=== PATIENT | male | born 1980 | race Caucasian/White ===

== ENCOUNTER 2017-05-28 23:03 | Emergency (ER) | payer OTHER ==
[2017-05-28 23:47] VITALS: BP 133/83; PULSE 88; TEMP 97.6; BMI 42.3
--- NOTE | 2017-05-29 | PDOC ---
History of Present Illness <Uriel Bill - Last Filed: 05/29/17 02:43> - History of Present Illness Initial Comments: 36 year old male with PMH of non-insulin dependent diabetes, diabetic neuropathy, and HTN presenting with left foot swelling over the last month. He states that he was in [place] one month ago and noticed swelling of his left foot that has been since slowly resolving. He denies any trauma or long trips besides the flight back and forth to [place]. He does have partial sensory loss in his feet bilaterally and admits that he could have sprained his ankle and not have known it. He is able to walk without any difficulty at all. Denies fevers, chills, nausea, vomiting, diarrhea, or constipation. 05/29/17 01:14 <Anne-Marie Whiting - Last Filed: 05/29/17 06:21> - General Chief Complaint: Edema Stated Complaint: FOOT INJURY Time Seen by Provider: 05/28/17 23:59 Past History <Uriel Bill - Last Filed: 05/29/17 02:43> - Past Medical History Diabetes: Yes (type 2) - Psycho/Social/Smoking Cessation Hx Anxiety: No Suicidal Ideation: No Smoking History: Never smoked Have you smoked in the past 12 months: No Information on smoking cessation initiated: No Hx Alcohol Use: No Drug/Substance Use Hx: No Substance Use Type: None <Anne-Marie Whiting - Last Filed: 05/29/17 06:21> - Past Medical History Allergies/Adverse Reactions: Allergies Allergy/AdvReac Type Severity Reaction Status Date / Time ibuprofen Allergy Verified 05/28/17 23:24 Penicillins Allergy Verified 05/28/17 23:24 Home Medications: Ambulatory Orders Metformin HCl [Glucophage -] 1,000 mg PO BID 02/13/16 Glipizide [Glipizide ER] 10 mg PO DAILY 05/29/17 Review of Systems - Review of Systems Constitutional: No: Chills, Diaphoresis, Fever HEENTM: No: Blurred Vision, Recent change in vision Respiratory: No: Cough, Shortness of Breath, Wheezing Cardiac (ROS): Yes: Edema. No: Chest Pain, Irregular Heart Rate ABD/GI: No: Constipated, Diarrhea, Nausea, Vomiting <Anne-Marie Whiting - Last Filed: 05/29/17 06:21> *Physical Exam - Vital Signs Last Vital Signs Temp Pulse Resp BP Pulse Ox 97.6 F 88 20 133/83 97 05/28/17 23:25 05/28/17 23:25 05/28/17 23:25 05/28/17 23:25 05/28/17 23:25 <Uriel Bill - Last Filed: 05/29/17 02:43> - Vital Signs Last Vital Signs Temp Pulse Resp BP Pulse Ox 97.6 F 88 20 133/83 97 05/28/17 23:25 05/28/17 23:25 05/28/17 23:25 05/28/17 23:25 05/28/17 23:25 - Physical Exam General Appearance: Yes: Nourished, Appropriately Dressed. No: Apparent Distress HEENT: positive: EOMI, SONIA, Normal Voice Neck: positive: Trachea midline, Normal Thyroid, Supple. negative: Tender, Rigid Respiratory/Chest: positive: Lungs Clear, Normal Breath Sounds. negative: Chest Tender, Respiratory Distress, Accessory Muscle Use Cardiovascular: positive: Regular Rhythm, Regular Rate, S1, S2, Edema. negative : JVD, Murmur Gastrointestinal/Abdominal: positive: Normal Bowel Sounds, Flat, Soft. negative : Tender Musculoskeletal: positive: Other (Left foot edema, non-pitting up to ankle. No bony eformities, tenderness, erythema, warmth, or skin breakage. Negative misa 's sign, calf tenderness, or unilateral leg swelling.). negative: Normal Inspection Extremity: positive: Normal Capillary Refill, Normal Range of Motion, Other ( Bilateral loss of descriminatory sensation in dorsal and plantar aspect of feet. ). negative: Normal Inspection Integumentary: positive: Normal Color, Dry, Warm. negative: Erythema <Anne-Marie Whiting - Last Filed: 05/29/17 06:21> ED Treatment Course - LABORATORY CBC & Chemistry Diagram: 05/29/17 01:35 05/29/17 01:35 - ADDITIONAL ORDERS Additional order review: Laboratory Results 05/29/17 01:35 Sodium 136 Potassium 4.2 Chloride 99 Carbon Dioxide 31 Anion Gap 6 L BUN 13 Creatinine 0.8 Creat Clearance w eGFR > 60 Random Glucose 281 H Calcium 8.7 Total Bilirubin 0.6 AST 12 L ALT 29 Alkaline Phosphatase 92 Total Protein 7.4 Albumin 3.6 05/29/17 01:35 RBC 5.04 MCV 79.9 L MCHC 33.3 RDW 13.5 MPV 8.3 Neutrophils % 53.3 Lymphocytes % 35.8 Monocytes % 8.8 Eosinophils % 1.5 Basophils % 0.6 - RADIOLOGY Radiograph Interpretation: 05/29/17 02:43 EXAM: Left lower extremity duplex venous Doppler ultrasound, interpreted by Dr. Najera. Read by: Dr. Whiting Impression: No evidence of DVT in the left lower extremity. <Uriel Bill - Last Filed: 05/29/17 02:43> - LABORATORY CBC & Chemistry Diagram: 05/29/17 01:35 05/29/17 01:35 <Anne-Marie Whiting - Last Filed: 05/29/17 06:21> Medical Decision Making - Medical Decision Making 36 year old male with diabetes and diabetic neuropathy with left foot swelling that has been gradually improving over the month. This is not concerning because he has full range of motion and lacks erythema, skin breakage, fluctuance, or bony deformities. Therefore, no suspicion for cellulitis, osteo, or charcot joint. CBC and CMP WNl with the exception of a glucose of 281. Doppler of left lower extremity not showing any vascular pathology. 05/29/17 03:18 Patient can go home with PCP follow up as needed. 05/29/17 03:30 <Anne-Marie Whiting - Last Filed: 05/29/17 06:21> *DC/Admit/Observation/Transfer <Uriel Bill - Last Filed: 05/29/17 02:43> - Discharge Dispostion Admit: No - Attestations Physician Attestion: 05/29/17 03:33 I, Dr. Anne-Marie Whiting, attest that this document has been prepared under my direction and personally reviewed by me in its entirety. I further attest, that it accurately reflects all work, treatment, procedures and medical decision -making performed by me. 05/29/17 06:21 <Anne-Marie Whiting - Last Filed: 05/29/17 06:21> Diagnosis at time of Disposition: Foot swelling - Discharge Dispostion Disposition: HOME Condition at time of disposition: Improved - Referrals Referrals: Alphonso Mendoza MD [Primary Care Provider] - - Patient Instructions Additional Instructions: You were seen for swelling of your left foot. We do not believe that it is infected and checked you left leg for blood clots. There were no clots seen. You may have sprained your ankle without noticing. It is important for you to keep your sugar under control and check your feet every day for wounds or skin breakage as your diabetic neuropathy exposes you to bad foot wounds and infections without you knowing. Please follow up with your primary care physician if you have any more questions.
[2017-05-29 01:57] LABS: BASOPHIL 0.6 % (0-2.0); EOSINOPHIL 1.5 % (0-4.5); MCH 26.6 pg (25.7-33.7); MCHC 33.3 g/dl (32.0-35.9); MEAN CELL VOLUME 79.9 fl (80-96); MEAN PLT VOLUME 8.3 fl (7.5-11.1); NEUTROPHILS 53.3 % (42.8-82.8); PLATELET COUNT 229 K/MM3 (134-434); RDW 13.5 % (11.9-15.9); WHITE BLOOD COUNT 8.2 K/mm3 (4.0-10.0)
[2017-05-29 02:21] LABS: ALBUMIN 3.6 g/dl (3.4-5.0); ANION GAP 6 (8-16); BILIRUBIN,TOTAL 0.6 mg/dL (0.2-1.0); CALCIUM 8.7 mg/dL (8.5-10.1); CO2 31 mmol/L (21-32); CREATININE 0.8 mg/dL (0.7-1.3); GLUCOSE,RANDOM 281 mg/dL (74-106); SGOT/AST 12 U/L (15-37); SGPT/ALT 29 U/L (12-78); TOT PROT 7.4 g/dl (6.4-8.2)
[2017-05-29 02:22] LABS: ALK PHOS 92 U/L (45-117)
--- NOTE | 2017-05-29 03:51 | PDOC ---
Attending Attestation - Resident Resident Name: Anne-Marie Whiting - HPI HPI: 05/29/17 03:47 - Physicial Exam PE: 05/29/17 03:47 Agree with resident's exam; pt has swelling of the ankle and foot on left side only. Pt is obese and he states that he places more weight on his left side when he stands. Pt has no redness, no warmth and no skin changes at the ankle and foot. No sign of infection. - Medical Decision Making 05/29/17 03:51 No DVT on sonogram. Swollen foot, NOS. Pt is obese, he has been encouraged to eat right and exercise and follow with ortho as needed.
== END 2017-05-29 03:52 | disposition home or self-care (01) ==
LOC: JER 23:03
DX: R22.42 Localized swelling, mass and lump, left lower limb (principal); E11.42 Type 2 diabetes mellitus with diabetic polyneuropathy; Z79.84 Long term (current) use of oral hypoglycemic drugs; I10 Essential (primary) hypertension
CPT/HCPCS: 36415; 80053; 85025; 93971-TC; 99282-25